=== PATIENT | male | born 1985 | race Caucasian/White ===

== ENCOUNTER 2020-08-12 23:27 | Emergency (ER) | payer SELFPAY ==
[~2020-08-12] VITALS: Ht 165.1 cm; Wt 66.0 kg
[2020-08-13 00:10] VITALS: BP 126/83
== END 2020-08-13 00:49 | disposition home or self-care (01) ==
LOC: ER 23:27
DX: T51.0X1A Toxic effect of ethanol, accidental (unintentional), initial encounter (principal); G92 Toxic encephalopathy; F10.129 Alcohol abuse with intoxication, unspecified; Y90.9 Presence of alcohol in blood, level not specified; Y92.89 Other specified places as the place of occurrence of the external cause; Z71.41 Alcohol abuse counseling and surveillance of alcoholic
CPT/HCPCS: 99283